=== PATIENT | female | born 1960 | race Caucasian/White ===

== ENCOUNTER → 2016-07-13 | Outpatient (CLI) | payer MEDICARE | LOC: CT 10:30 → KOH-I 11:00 | DX: G89.4 Chronic pain syndrome (principal); M54.2 Cervicalgia; M50.321 Other cervical disc degeneration at C4-C5 level | CPT/HCPCS: 72125 ==

== ENCOUNTER → 2016-11-02 | Outpatient (CLI) | payer MEDICARE | LOC: LAB 13:08 | PROVIDERS: Internal Medicine Nephrology | DX: N18.3 Chronic kidney disease, stage 3 (moderate) (principal) | CPT/HCPCS: 36415; 80048 ==

== ENCOUNTER → 2020-06-22 | Outpatient (CLI) | payer MEDICARE, OTHER ==
[~2020-06-22] MED LIST: AMLODIPINE BESYL5 MG PO; BUSPAR 10MG10 MG PO; CEFPODOXIME PR200 MG PO; CEFUROXIME500 MG PO; CEREFOLIN CAPL1 EACH PO; CITALOPRAM HBR40 MG PO; FLAGYL500 MG PO; GLUCOSAMINE HC500 MG PO; HYDROCODON-ACE1 EAC6 PO; LOPRESSOR 25 MG25 MG PO; LOPRESSOR 50 MG50 MG PO; METOPROLOL SUCC25 MG PO; NORFLEX 100 MG100 MG PO; PERCOCET 5-3251 EACH PO; PRAVACHOL40 MG PO; REMICADE I100 MG/VIA INJ; REQUIP3 MG PO; SEROQUEL TAB 2525 MG PO; SEROQUEL25 MG PO; VERAPAMIL ER240 M1 PO; Voltaren Gel 1 % TOP; ZANTAC 150 MG150 MG PO; ZYVOX600 MG PO
== END ==
LOC: KOH-I 06-21 11:30
DX: D17.0 Benign lipomatous neoplasm of skin and subcutaneous tissue of head, face and neck (principal)
CPT/HCPCS: 76604

== ENCOUNTER → 2020-10-13 | Outpatient (CLI) | payer MEDICARE, OTHER ==
[2020-10-14 11:15] LABS: CREATININE, URINE 164.8 mg/dL (Not Estab.)
== END ==
LOC: LAB 14:33
PROVIDERS: Internal Medicine Nephrology
DX: N18.30 Chronic kidney disease, stage 3 unspecified (principal)
CPT/HCPCS: 36415; 80053; 81001; 82043; 82570; 84156

== ENCOUNTER → 2020-12-20 | Outpatient (CLI) | payer MEDICARE ==
[~2020-12-20] MED LIST changes: +OMNICEF 300 MG300 MG PO; +PHENERGAN 12.12.5 M1 PO
[2020-12-21 11:14] LABS: CREATININE, URINE 101.7 mg/dL (Not Estab.)
== END ==
LOC: LAB 12:06
PROVIDERS: Internal Medicine Nephrology
DX: N18.30 Chronic kidney disease, stage 3 unspecified (principal)
CPT/HCPCS: 36415; 80053; 81001; 82043; 82570; 84156

== ENCOUNTER 2021-02-06 23:48 | Emergency (ER) | payer MEDICARE ==
[~2021-02-06 23:48] MED LIST changes: -OMNICEF 300 MG300 MG PO; -PHENERGAN 12.12.5 M1 PO
[2021-02-07 00:43] LABS: HEMOGLOBIN 14.6 gm/dl (12.3-15.3); RED BLOOD COUNT 5.24 M/UL (4.00-5.10); WHITE BLOOD COUNT 6.6 K/UL (4.5-11.0)
[2021-02-07] MEDS ORDERED: PHENERGAN 12.12.5 M1 PO (03:05)
[2021-02-07] MEDS ORDERED: PERCOCET 5-3251 EACH PO (03:05)
[2021-02-07] MEDS ORDERED: OMNICEF 300 MG300 MG PO (03:05)
== END 2021-02-07 03:12 | disposition home or self-care (01) ==
LOC: ER1 23:48
PROVIDERS: Family Medicine
DX: N13.2 Hydronephrosis with renal and ureteral calculous obstruction (principal); R31.9 Hematuria, unspecified; M06.9 Rheumatoid arthritis, unspecified; Z88.2 Allergy status to sulfonamides; Z90.49 Acquired absence of other specified parts of digestive tract
CPT/HCPCS: 80053; 81001; 83690; 85025; 96365; 96375; 99284; J0696; J1885; J2270; J2550; J7030

== ENCOUNTER 2021-04-16 15:28 | Emergency (ER) | payer MEDICARE ==
[~2021-04-16 15:28] MED LIST changes: +OMNICEF 300 MG300 MG PO; +PHENERGAN 12.12.5 M1 PO
[2021-04-16 16:42] LABS: HEMOGLOBIN 18.4 gm/dl (12.3-15.3); RED BLOOD COUNT 6.33 M/UL (4.00-5.10); WHITE BLOOD COUNT 7.1 K/UL (4.5-11.0)
== END 2021-04-16 20:20 | disposition home or self-care (01) ==
LOC: ER1 15:28
PROVIDERS: Physician Assistant
DX: E86.0 Dehydration (principal); R10.9 Unspecified abdominal pain; Z88.1 Allergy status to other antibiotic agents; Z88.8 Allergy status to other drugs, medicaments and biological substances
CPT/HCPCS: 80053; 81001; 83605; 85025; 87040; 96374; 99284; J1885; J2405; J7030

== ENCOUNTER → 2021-04-20 | Outpatient (CLI) | payer MEDICARE | LOC: LBRF 15:53 | DX: R19.7 Diarrhea, unspecified (principal) | CPT/HCPCS: 87045; 87046 ==

== ENCOUNTER → 2021-05-05 | Outpatient (CLI) | payer MEDICARE ==
[2021-05-06 07:11] LABS: A/G RATIO 1.5 (1.2-2.2); BILIRUBIN, TOTAL 2.1 mg/dL (0.0-1.2); CALCIUM, SERUM 9.5 mg/dL (8.7-10.3); CREATININE, SERUM 1.2 mg/dL (0.57-1.00); GLOBULIN, TOTAL 2.9 g/dL (1.5-4.5); POTASSIUM, SERUM 4.6 mmol/L (3.5-5.2); PROTEIN, TOTAL, SERUM 7.3 g/dL (6.0-8.5)
== END ==
LOC: LAB 15:05
PROVIDERS: Internal Medicine Nephrology
DX: N18.30 Chronic kidney disease, stage 3 unspecified (principal)
CPT/HCPCS: 36415; 80053; 81001; 82043; 82570; 84156

== ENCOUNTER → 2021-06-17 | Outpatient (CLI) | payer MEDICARE | LOC: KOH-I 13:00 | DX: R09.89 Other specified symptoms and signs involving the circulatory and respiratory systems (principal); I83.893 Varicose veins of bilateral lower extremities with other complications | CPT/HCPCS: 93922; 93925; 93970 ==

== ENCOUNTER → 2021-11-08 | Outpatient (CLI) | payer MEDICARE ==
[2021-11-09 10:14] LABS: CREATININE, URINE 96.8 mg/dL (Not Estab.)
== END ==
LOC: LAB 12:21
PROVIDERS: Internal Medicine Nephrology
DX: I12.9 Hypertensive chronic kidney disease with stage 1 through stage 4 chronic kidney disease, or unspecified chronic kidney disease (principal); N18.30 Chronic kidney disease, stage 3 unspecified; E87.5 Hyperkalemia; M06.9 Rheumatoid arthritis, unspecified; R06.02 Shortness of breath; F55.8 Abuse of other non-psychoactive substances
CPT/HCPCS: 36415; 80053; 81001; 82043; 82570; 84156